=== PATIENT | female | born 1940 | race Caucasian/White ===

== ENCOUNTER 2017-11-14 11:09 | Emergency (ER) | payer MEDICARE, OTHER ==
[2017-11-14] MEDS ORDERED: NORMAL SALINE 1000 ML 1,000 ML IV ONE ×2 (11:39→17:21)
--- NOTE | 2017-11-14 12:05 | ER Document Report ---
ED General - General Chief Complaint: Fall Stated Complaint: FALL,HIP PAIN Time Seen by Provider: 11/14/17 11:25 TRAVEL OUTSIDE OF THE [place] IN LAST 30 DAYS: No - HPI Notes: 77-year-old female who was brought in after a fall 2 days ago. Family states the last 4 years the patient has struggled with frequent falls. She has had problems with sciatica and chronic back pain and has struggled with her equilibrium and falls. However 2 days ago she fell onto her left side a simple trip mechanical fall they stated she did hit her head. She complains of left arm and leg pain. There is nobody saw her fall so they do not really know if she lost consciousness. Since then the patient seems to be more somnolent. And they wanted to have her checked. Patient complains of bruising and aching pain to her left hand. And her left hip. Denies any abdominal pain. Denies any burning or pain with urination. Denies chest pain denies shortness of breath. - Related Data Allergies/Adverse Reactions: Dexbrompheniramine [From Drixoral Allergy Sinus] Adverse Reaction (Intermediate , Verified 12/06/14 17:46) Rapid heartrate, sleepiness pseudoephedrine HCl [From Drixoral Allergy Sinus] Adverse Reaction (Intermediate , Verified 12/06/14 17:46) Rapid heartrate, sleepiness Past Medical History - Social History Smoking Status: Never Smoker Chew tobacco use (# tins/day): No Frequency of alcohol use: None Drug Abuse: None Family History: Reviewed & Not Pertinent Patient has suicidal ideation: No Patient has homicidal ideation: No - Past Medical History Cardiac Medical History: Reports: Hx Atrial Fibrillation, Hx Hypercholesterolemia, Hx Hypertension, Hx Heart Murmur Pulmonary Medical History: Reports: Hx Pneumonia Renal/ Medical History: Denies: Hx Peritoneal Dialysis GI Medical History: Reports: Hx Gastroesophageal Reflux Disease Musculoskeletal Medical History: Reports Hx Arthritis, Reports Hx Musculoskeletal Deformity Psychiatric Medical History: Denies: Hx Depression Past Surgical History: Reports: Hx Section, Hx Orthopedic Surgery - R foot, R knee, Hx Tubal Ligation - Immunizations Immunizations up to date: No Hx Diphtheria, Pertussis, Tetanus Vaccination: No Hx Pneumococcal Vaccination: 12/31/13 Review of Systems - Review of Systems Constitutional: denies: Chills, Fever Respiratory: denies: Short of breath Gastrointestinal: Diarrhea - Several loose stools. denies: Abdominal pain, Nausea, Vomiting Musculoskeletal: Back pain, Joint pain. denies: Neck pain -: Yes All other systems reviewed and negative Physical Exam - Vital signs Vitals: Temp Pulse Resp BP Pulse Ox 97.5 F 85 16 112/44 L 98 11/14/17 11:12 11/14/17 11:12 11/14/17 11:12 11/14/17 11:12 11/14/17 11:12 - Notes Notes: GENERAL_APPEARANCE: Thin, alert, cooperative, no_acute_distress, no_obvious_ discomfort. VITALS: reviewed, see vital signs table. HEAD: no_swelling\tenderness on the head. EYES: PERRL, EOMI, conjunctiva_clear. NOSE: no_nasal_discharge. MOUTH: Slightly decreased moisture. THROAT: no_throat_inflammation, no_airway_obstruction. no_lymphadenopathy NECK: supple, no_neck_tenderness, (-)thyromegaly. BACK: L5-S1_back_tenderness. CHEST_WALL: no_chest_tenderness. LUNGS: no_wheezing, no_rales, no_rhonchi, (-)accessory muscle use, good air exchange bilateral. HEART: normal_rate, normal_rhythm, normal_S1, normal_S2, (-)S3, (-)S4, no_ murmur, no_rub. ABDOMEN: normal_BS, soft, no_abd_tenderness, (-)guarding, (-)rebound, no_ organomegaly, no_abd_masses. EXTREMITIES: There is bruising of the left wrist with some mild tenderness no obvious deformity, there is tenderness of the left greater trochanter of the hip no rotation or shortening noted PMS is intact distal. No edema is noted. SKIN: warm, dry, good_color, no_rash. MENTAL_STATUS: speech_clear, oriented_X_3, normal_affect, responds_ appropriately to questions. NEURO: Neg Motor or Sensory Deficits on exam, CN 2-12 intact, DTR 2+ symmetric x 4, No cerbellar signs Course - Re-evaluation Re-evalutation: 11/14/17 12:04 77-year-old female has a history of the last 4 years her frequent falls. Patient fell 2 days ago and appears to have hit her left wrist, hip and head. Unknown if LOC. We will scan the patient's head because she complains of no neck pain. Left wrist is bruised. Will x-ray. Hip is bruised for x-ray. Family states since she fell she has been a little more somnolent. Not her normal self she may have had a mild caution however her neuro exam is without deficit. She is able to answer all orientation questions appropriately. 11/14/17 17:21 Patient had some mild dehydration related to some renal insufficiency and acute kidney injury. Patient received 2 L of IV fluid here in the emergency department is feeling much better she did have a UTI was given a dose of Rocephin here. Urine is reflex cultured. Patient will be placed on Ceftin for home. We will have her follow-up with her family doctor. Son is briefed and he is very happy with this plan of care. - Vital Signs Vital signs: Temp Pulse Resp BP Pulse Ox 97.5 F 85 16 112/44 L 98 11/14/17 11:12 11/14/17 11:12 11/14/17 11:12 11/14/17 11:12 11/14/17 11:12 - Laboratory Result Diagrams: 11/14/17 12:34 11/14/17 12:34 Laboratory results interpreted by me: 11/14/17 11/14/17 11/14/17 12:34 12:34 16:15 Hgb 11.9 L Hct 35.0 L RDW 14.9 H Plt Count 472 H Lymphocytes % 10.6 L Sodium 133.8 L Potassium 3.4 L Chloride 94 L BUN 61 H Creatinine 2.47 H Est GFR ( Amer) 23 L Est GFR (Non-Af Amer) 19 L Direct Bilirubin 0.5 H AST 125 H ALT 155 H Alkaline Phosphatase 278 H Creatine Kinase 158 H Urine Protein 30 H Urine Ketones TRACE H Urine Blood SMALL H Urine Urobilinogen 2.0 H Ur Leukocyte Esterase LARGE H - Diagnostic Test Radiology reviewed: Image reviewed Radiology results interpreted by me: 11/14/17 15:01 Chest X-Ray 11/14/17 11:38 IMPRESSION: NO ACUTE RADIOGRAPHIC FINDING IN THE CHEST. Hip X-Ray 11/14/17 11:38 IMPRESSION: OLD RIGHT-SIDED PUBIC FRACTURES. NO RADIOGRAPHIC EVIDENCE OF ACUTE INJURY. Wrist X-Ray 11/14/17 11:38 IMPRESSION: DEGENERATIVE CHANGES. NO RADIOGRAPHIC EVIDENCE OF ACUTE INJURY. - EKG Interpretation by Me EKG shows normal: Sinus rhythm Rate: Normal Rhythm: NSR Discharge - Discharge Clinical Impression: Dehydration UTI (urinary tract infection) Qualifiers: Urinary tract infection type: acute cystitis Hematuria presence: without hematuria Qualified Code(s): N30.00 - Acute cystitis without hematuria Condition: Good Disposition: HOME, SELF-CARE Instructions: Urinary Tract Infection ([facility]), Dehydration ([facility]) Additional Instructions: Please follow-up with your doctor for further care take the antibiotic prescribed as directed Prescriptions: Cefuroxime Axetil [Ceftin 500 mg Tablet] 500 mg PO Q12H #20 tablet Referrals: TIM MERAZ MD [Primary Care Provider] - Follow up as needed
--- NOTE | 2017-11-14 12:24 | RADIOLOGY REPORT (SQ) ---
EXAM DESCRIPTION: WRIST LEFT 2 VIEWS COMPLETED DATE/TIME: 11/14/2017 12:12 pm REASON FOR STUDY: fall COMPARISON: None. NUMBER OF VIEWS: Three views. TECHNIQUE: AP, lateral, and oblique radiographic images acquired of the left wrist. LIMITATIONS: None. FINDINGS: MINERALIZATION: Normal. BONES: No acute fracture or dislocation. No worrisome bone lesions. Normal alignment. Degenerative changes at the base of the thumb with joint space narrowing and sclerosis. SOFT TISSUES: No soft tissue swelling. No foreign body. Faint chondrocalcinosis. OTHER: No other significant finding. IMPRESSION: DEGENERATIVE CHANGES. NO RADIOGRAPHIC EVIDENCE OF ACUTE INJURY. TECHNICAL DOCUMENTATION: JOB ID: [id number] [employer] All Rights Reserved Reading location - IP/workstation name: [email or web address]
--- NOTE | 2017-11-14 12:25 | RADIOLOGY REPORT (SQ) ---
EXAM DESCRIPTION: CHEST SINGLE VIEW COMPLETED DATE/TIME: 11/14/2017 12:12 pm REASON FOR STUDY: fall COMPARISON: 10/12/2015. EXAM PARAMETERS: NUMBER OF VIEWS: One view. TECHNIQUE: Single frontal radiographic view of the chest acquired. RADIATION DOSE: NA LIMITATIONS: None. FINDINGS: LUNGS AND PLEURA: No opacities, masses or pneumothorax. No pleural effusion. MEDIASTINUM AND HILAR STRUCTURES: No masses. Contour normal. HEART AND VASCULAR STRUCTURES: Heart normal in size. Normal vasculature. BONES: No acute findings. HARDWARE: None in the chest. OTHER: No other significant finding. IMPRESSION: NO ACUTE RADIOGRAPHIC FINDING IN THE CHEST. TECHNICAL DOCUMENTATION: JOB ID: [id number] [employer]- All Rights Reserved Reading location - IP/workstation name: [email or web address]
--- NOTE | 2017-11-14 12:27 | RADIOLOGY REPORT (SQ) ---
EXAM DESCRIPTION: HIP LEFT AP/LATERAL COMPLETED DATE/TIME: 11/14/2017 12:12 pm REASON FOR STUDY: fall COMPARISON: Abdominal x-ray dated 12/13/2012. NUMBER OF VIEWS: Two views. TECHNIQUE: AP pelvis and additional frog-leg view of the left hip. LIMITATIONS: None. FINDINGS: MINERALIZATION: Normal. LEFT HIP: No fracture or dislocation. No worrisome bone lesions. RIGHT HIP: No fracture or dislocation. No worrisome bone lesions. PUBIS AND ISCHIUM: Pole right-sided pubic fractures. No acute fracture. PELVIS: No fracture. SACRUM: No fracture or dislocation. No worrisome bone lesions. LOWER LUMBAR SPINE: Degenerative changes with surgical hardware. SOFT TISSUES: No findings. OTHER: No other significant finding. IMPRESSION: OLD RIGHT-SIDED PUBIC FRACTURES. NO RADIOGRAPHIC EVIDENCE OF ACUTE INJURY. TECHNICAL DOCUMENTATION: JOB ID: [id number] [employer]- All Rights Reserved Reading location - IP/workstation name: [email or web address]
[2017-11-14 12:56] LABS: ABSOLUTE BASOPHILS # (AUTO) 0.1 10^3/uL (0.0-0.2); ABSOLUTE EOSINOPHILS # (AUTO) 0.1 10^3/uL (0.0-0.6); ABSOLUTE LYMPHOCYTES (AUTO) 0.9 10^3/uL (0.5-4.7); ABSOLUTE MONOCYTES (AUTO) 0.9 10^3/uL (0.1-1.4); ABSOLUTE NEUT (AUTO) 6.3 10^3/uL (1.7-8.2); EOSINOPHILS % (AUTO) 0.6 % (0-6); HEMOGLOBIN 11.9 g/dL (12.0-15.5); LYMPHOCYTES % (AUTO) 10.6 % (13-45); MEAN CORPUSCULAR HEMOGLOBIN 31.8 pg (27.0-33.4); MEAN CORPUSCULAR VOLUME 93 fl (80-97); MONOCYTES % (AUTO) 11.5 % (3-13); PLATELET COUNT 472 10^3/uL (150-450); RED BLOOD COUNT 3.74 10^6/uL (3.72-5.28); RED CELL DISTRIBUTION WIDTH 14.9 % (11.5-14.0); SEGMENTED NEUTROPHILS % (AUTO) 76.3 % (42-78); TOTAL CELLS COUNTED % (AUTO) 100 %; WHITE BLOOD COUNT 8.3 10^3/uL (4.0-10.5)
[2017-11-14 13:15] LABS: ALANINE AMINOTRANSFERASE 155 U/L (9-52); ALBUMIN 3.9 g/dL (3.5-5.0); ALKALINE PHOSPHATASE 278 U/L (38-126); ANION GAP 17 (5-19); ASPARTATE AMINO TRANSFERASE 125 U/L (14-36); BILIRUBIN,DIRECT 0.5 mg/dL (0.0-0.4); BILIRUBIN,TOTAL 0.9 mg/dL (0.2-1.3); BLOOD UREA NITROGEN 61 mg/dL (7-20); CALCIUM 8.4 mg/dL (8.4-10.2); CARBON DIOXIDE 23 mmol/L (22-30); CHLORIDE 94 mmol/L (98-107); CREATINE KINASE 158 U/L (30-135); GLUCOSE 101 mg/dL (75-110); POTASSIUM 3.4 mmol/L (3.6-5.0); SODIUM 133.8 mmol/L (137-145); TOTAL PROTEIN 7.7 g/dL (6.3-8.2)
[2017-11-14 17:18] LABS: APPEARANCE,URINE TURBID; BILIRUBIN,URINE NEGATIVE (NEGATIVE); COLOR,URINE AMBER; GLUCOSE, URINE NEGATIVE (NEGATIVE); KETONES,URINE TRACE mg/dL (NEGATIVE); LEUKOCYTE ESTERASE,URINE LARGE (NEGATIVE); NITRITE,URINE NEGATIVE (NEGATIVE); PROTEIN,URINE 30 mg/dL (NEGATIVE); URINE SPECIFIC GRAVITY 1.014
[2017-11-14] MEDS ORDERED: CEFTRIAXONE INJ 1000 MG VIAL IV ONE (17:19)
[2017-11-14 19:26] VITALS: BP 110/50
--- NOTE | 2017-11-14 22:16 | EKG REPORT ---
SEVERITY:- NORMAL ECG - SINUS RHYTHM LVH NONSPECIFIC ST-T CHANGES VS ISCHEMIA VS LVH RELATED : Confirmed by: Jelena Guevara 14-Nov-2017 22:15:58
== END 2017-11-14 19:26 | disposition home or self-care (01) ==
LOC: ER 11:09
DX: E86.0 Dehydration (principal); N30.00 Acute cystitis without hematuria; G89.29 Other chronic pain; M54.9 Dorsalgia, unspecified; S60.222A Contusion of left hand, initial encounter; S09.90XA Unspecified injury of head, initial encounter; M79.602 Pain in left arm; R19.7 Diarrhea, unspecified; M79.605 Pain in left leg; W01.0XXA Fall on same level from slipping, tripping and stumbling without subsequent striking against object, initial encounter; Z91.81 History of falling; I48.91 Unspecified atrial fibrillation; E78.00 Pure hypercholesterolemia, unspecified; I10 Essential (primary) hypertension; Z98.51 Tubal ligation status
CPT/HCPCS: 93005; 36415; 82550; 85025; 80053; 81001; 84484; 71045; 73502; 73100; 93010; J0696; J7030